=== PATIENT | female | born 1980 | race Caucasian/White ===

== ENCOUNTER 2019-03-25 06:41 | Inpatient (IN) | payer OTHER ==
[2019-03-25] VITALS (36 sets, daily range): BP systolic 125–168; BP diastolic 65–98; PULSE 75–110; TEMP 97.7–98.1
[~2019-03-25] VITALS: Ht 165.1 cm; Wt 90.9 kg
--- NOTE | 2019-03-25 08:50 | NUR ---
Patient ambulatory onto unit for scheduled induction of labor. Patient oriented to room, plan of care discussed, questions answered. Patient changes into gown. Patient reports good movement and irregular contractions. Patient denies vaginal bleeding or leaking of fluid. EFMs on, VS taken. IV attempted x1. IV started by Katlyn LAU. LR infusing. Assessment completed. Consents signed. Pitocin started per orders.
[2019-03-25] MEDS ORDERED: LEVOXYL0.05 MG PO (09:58)
[2019-03-25] MEDS ORDERED: PRENATAL VITAMI1 TA3 PO (09:59)
[2019-03-25 10:19] LABS: COLLECTION METHOD CLEAN CATCH
[2019-03-25 10:22] LABS: BASO % 0.4 % (0.0-2.0); EOS % 0.3 % (0-4.0); GRAN # 6.7 (1.4-6.5); GRAN % 72.6 % (42.2-75.2); HEMATOCRIT 38.9 % (37.0-47.0); HEMOGLOBIN 13.8 g/dl (12.5-16.0); LYMPH # 1.8 (1.2-3.4); LYMPH % 19.6 % (20.0-51.0); MEAN CELL VOLUME 88 fl (80.0-100.0); MEAN CORPUSCULAR HEMOGLOBIN 31 pg (27.0-31.0); MEAN CORPUSCULAR HGB CONC 36 g/dl (33.0-37.0); MEAN PLATELET VOLUME 11.2 fl (7.4-10.4); MONO # 0.6 (0.1-0.6); MONO % 6.7 % (1.7-9.3); PLATELET COUNT 202 K/mm3 (130-400); RED BLOOD COUNT 4.42 M/mm3 (4.10-5.30); REDCELL DISTRIBUTION WIDTH-CV 13.6 % (11.5-14.5)
[2019-03-25 10:25] LABS: PH 6 (5-8); SQUAMOUS EPITHELIAL 0-2 /hpf; URINE APPEARANCE Clear; URINE BACTERIA None Seen /hpf; URINE BILIRUBIN Negative (NEGATIVE); URINE BLOOD Negative (NEGATIVE); URINE COLOR Yellow; URINE GLUCOSE Negative (NEGATIVE); URINE KETONE Negative (NEGATIVE); URINE LEUKOCYTE ESTERASE Negative (NEGATIVE); URINE NITRATE Negative (NEGATIVE); URINE PROTEIN(semi-quant) Negative (NEGATIVE); URINE RBC 0-2 /hpf; URINE UROBILINOGEN Negative (NEGATIVE); URINE WBC 0-2 /hpf
[2019-03-25 11:03] LABS: ALBUMIN 3.4 gm/dL (3.5-5.0); BILIRUBIN,TOTAL 0.8 mg/dL (0.0-1.0); CREATININE, serum 0.66 (0.52-1.25); POTASSIUM 4.4 mmol/L (3.4-5.0); TOTAL PROTEIN 6.4 gm/dL (6.4-8.2)
--- NOTE | 2019-03-25 12:00 | NUR ---
to bedside. AROM at 1159, moderate amount of clear fluid noted. SVE /-2 per provider. Plan of care discussed. Questions answered.
--- NOTE | 2019-03-25 12:45 | NUR ---
Patient up to birthing ball. Reports increased discomfort with contractions.
--- NOTE | 2019-03-25 14:00 | NUR ---
Patient up to bathroom from birthing ball to void. Rating pain at 5/10 with contractions. SVE 5/80/-2. Patient into bed. Positioned in far right lateral with left leg up in stirrups. Denies need for pain intervention at this time but is asking about IV pain medication.
--- NOTE | 2019-03-25 15:50 | NUR ---
1450: Patient calls out requesting SVE and Stadol. SVE 5-6/90/-2. Patient up to bathroom. 1455: Patient returns to bed. Breathing/moaning through contractions. Patient into left lateral position with right leg in stirrups. 1500: SVE 6-7/90/-1. 1520: Patient reports rectal pressure with contractions. SVE 8/0. 1525: on unit, to bedside. SVE 8-9 per provider. 1530: Patient bearing down with contractions. SVE 9/0. Vineet RN to bedside as nursery nurse. 1540: Spontaneous vaginal delivery of head followed by infant with 42 second shoulder dystocia assisted by . See shoulder dystocia intervention and physician notification. Infant care assumed by Vineet LAU at this time. Pitocin off. 1545: Spontaneous vaginal delivery of placenta assisted by . Pitocin infusing at 333ml/hr. Fundus firm at D1, scant lochia noted. 2nd degree laceration repaired using 2-[address]-1. 1550: Recovery period started. Pericare performed. Ice pack in place.
[2019-03-25] MEDS ORDERED: MOTRIN 800800 MG/TAB PO (17:46)
[2019-03-26 03:55] VITALS: BP 147/98; PULSE 90; TEMP 97.5
[2019-03-26 07:05] VITALS: BP 14/87; PULSE 87; TEMP 97.8
--- NOTE | 2019-03-26 09:14 | NUR ---
Initial visit; Parents thanked [employer] Worker for offering congratulations and God's blessings for the of their son. [employer] Support Worker thanked family for choosing [facility].
[2019-03-26 11:05] VITALS: BP 140/97; PULSE 91; TEMP 97.8
[2019-03-26 15:45] VITALS: BP 137/82; PULSE 82; TEMP 97.8
== END 2019-03-26 17:40 | disposition home or self-care (01) | DRG 807 ==
LOC: LDR 06:41 → OB 08:42 → LDR 08:42 → OB 03-26 03:39
PROVIDERS: ADMIT Obstetrics & Gynecology
PROC: 10E0XZZ Delivery of Products of Conception, External Approach (ICD-10-PCS; principal; 2019-03-26)
PROC: 0KQM0ZZ Repair Perineum Muscle, Open Approach (ICD-10-PCS; 2019-03-26)
PROC: 3E033VJ Introduction of Other Hormone into Peripheral Vein, Percutaneous Approach (ICD-10-PCS; 2019-03-26)
DX: O66.0 Obstructed labor due to shoulder dystocia (principal); Z37.0 Single live birth; Z3A.38 38 weeks gestation of pregnancy; O99.284 Endocrine, nutritional and metabolic diseases complicating childbirth; O70.1 Second degree perineal laceration during delivery; R03.0 Elevated blood-pressure reading, without diagnosis of hypertension
CPT/HCPCS: J2590; J7120

== ENCOUNTER 2020-02-04 08:05 | Day surgery (SDC) | payer OTHER ==
[~2020-02-04] VITALS: Ht 165.1 cm; Wt 83.9 kg
[~2020-02-04 08:05] MED LIST: LEVOXYL0.05 MG PO; MOTRIN 800800 MG/TAB PO; PRENATAL VITAMI1 TA3 PO
[2020-02-04 08:21] VITALS: BP 122/74; PULSE 79; TEMP 97.4
[2020-02-04] MEDS ORDERED: MULTIPLE VITAMI1 TA5 PO (08:29)
[2020-02-04 10:20] VITALS: BP 108/84; PULSE 70; TEMP 97.6
--- NOTE | 2020-02-04 10:20 | NUR ---
Patient arrives back to [facility] drowsy, transfered from cart to chair by Endo Nurse. Patient monitor applied, vitals stable. Patient given coffee and muffin. Patient denies pain or nausea.
[2020-02-04 10:35] VITALS: BP 123/81; PULSE 70
--- NOTE | 2020-02-04 10:45 | NUR ---
Patient tolerated coffee and muffin without any nausea. Vitals stable, denies pain. Patient reports she is ready to go home.
[2020-02-04 10:50] VITALS: BP 119/95; PULSE 10
--- NOTE | 2020-02-04 11:10 | NUR ---
Dismissal instructions gone over with patient. Patient voices understanding and all questions answered.
--- NOTE | 2020-02-04 11:15 | NUR ---
Patient discharged to private vehicle her is driving at patient enterance via wheelchair without any complications. Patient leaves thanking staff for services.
== END 2020-02-04 11:15 | disposition home or self-care (01) ==
LOC: SDCO 08:05
DX: K62.89 Other specified diseases of anus and rectum (principal); K92.1 Melena; K64.0 First degree hemorrhoids; E03.9 Hypothyroidism, unspecified
CPT/HCPCS: J2704; J3010; J7120

== ENCOUNTER → 2021-06-27 | Outpatient (CLI) | payer OTHER ==
[~2021-06-27] MED LIST changes: +MULTIPLE VITAMI1 TA5 PO
== END ==
LOC: MC.RAD 08:30
DX: Z12.31 Encounter for screening mammogram for malignant neoplasm of breast (principal)

== ENCOUNTER → 2021-09-24 | Outpatient (CLI) | payer OTHER | LOC: COL.RAD 07:10 | DX: M79.672 Pain in left foot (principal) ==

== ENCOUNTER → 2023-09-09 | Outpatient (CLI) | payer OTHER | LOC: MC.RAD 08:51 | DX: Z12.31 Encounter for screening mammogram for malignant neoplasm of breast (principal) ==